=== PATIENT | female | born 1955 | race Hispanic/Latino ===

== ENCOUNTER 2018-01-08 18:06 | Inpatient (IN) | payer MEDICAID ==
[2018-01-08] MEDS ORDERED: Sodium Chloride 0.9% 1,000 ML IV STA (18:19)
[2018-01-08] MEDS ORDERED: Albuterol-Ipratrop 3 mg / 0.5 (3 ml) UD INH STA (18:20)
--- NOTE | 2018-01-08 18:30 | ED PDOC ---
HPI: SOB/CHF/COPD Time Seen by Provider: 01/08/18 18:15 Chief Complaint (Nursing): Shortness Of Breath Chief Complaint (Provider): Shortness Of Breath History Per: Patient History/Exam Limitations: no limitations Onset/Duration Of Symptoms: Days (x2 weeks) Additional Complaint(s): 62 y/o female with history of diabetes presents to the ED via EMS complaining of cough, shortness of breath, fever, and body aches ongoing intermittent episodes for the past x2 weeks. Patient denies any vomiting or diarrhea. Patient has a history of diabetes but admits to not taking any medications and does not check her sugar. She denies having any sick contact and reports that her family called 911 when they saw her for the Holidays and were concerned about her overall health. Past Medical History Reviewed: Historical Data, Nursing Documentation, Vital Signs Vital Signs: Last Vital Signs Temp 102.7 F H 01/08/18 18:13 Pulse 100 H 01/08/18 18:13 Resp 22 01/08/18 18:13 BP 142/98 H 01/08/18 18:13 Pulse Ox 93 L 01/08/18 18:19 - Medical History PMH: Diabetes - Surgical History Surgical History: - Family History Family History: States: Unknown Family Hx - Social History Current smoker - smoking cessation education provided: No Alcohol: None - Immunization History Hx Tetanus Toxoid Vaccination: No Hx Influenza Vaccination: No Hx Pneumococcal Vaccination: No - Home Medications Home Medications: Ambulatory Orders Medication Instructions Recorded GlipiZIDE [Glucotrol] 5 mg PO BID #60 tab 07/24/15 Sulfamethoxazole/Trimethoprim 1 tab PO BID #12 tab 07/24/15 [Bactrim DS 800 mg-160 mg] metFORMIN [glucOPHAGE] 500 mg PO BID #60 tab 07/24/15 - Allergies Allergies/Adverse Reactions: Allergies Allergy/AdvReac Type Severity Reaction Status Date / Time No Known Allergies Allergy Unverified 01/08/18 18:13 Review of Systems ROS Statement: Except As Marked, All Systems Reviewed And Found Negative Constitutional: Positive for: Fever, Weakness, Malaise, Other (body aches) Respiratory: Positive for: Cough, Shortness of Breath Gastrointestinal: Negative for: Vomiting, Abdominal Pain, Diarrhea Genitourinary Female: Negative for: Dysuria, Frequency, Incontinence Musculoskeletal: Negative for: Neck Pain Neurological: Negative for: Headache Physical Exam - Reviewed Nursing Documentation Reviewed: Yes Vital Signs Reviewed: Yes - Physical Exam Appears: Positive for: Non-toxic Head Exam: Positive for: ATRAUMATIC, NORMOCEPHALIC Skin: Positive for: Normal Color, Warm, Dry Eye Exam: Positive for: EOMI, Normal appearance, PERRL Neck: Positive for: Normal, Painless ROM Respiratory: Positive for: Rhonchi (at right base of lungs), Wheezing (trace wheezing bilaterally) Gastrointestinal/Abdominal: Positive for: Normal Exam, Soft. Negative for: Tenderness Extremity: Positive for: Other (distal pulses intact). Negative for: Pedal Edema, Deformity Neurologic/Psych: Positive for: Alert, Oriented. Negative for: Motor/Sensory Deficits - ECG O2 Sat by Pulse Oximetry: 93 (RA) Pulse Ox Interpretation: Abnormal Medical Decision Making Medical Decision Making: Time: 18:19 Impression: patient was found to be febrile. Will workup for sepsis r/o pneumonia vs. Flu vs. other Initial Plan: * VBG * EKG * CMP * Magnesium * Phosphorous * CBC w/ diff * PTT * Prothrombin time * CXR * Duoneb * IV fluids * Tylenol * Blood culture * Urine culture * O2 via nasal cannula * Peak flow * Influenza A B * UA ----- Scribe Attestation: Documented by Orlando He, acting as a scribe for Nirav Torres MD. Provider Scribe Attestation: All medical record entries made by the Scribe were at my direction and personally dictated by me. I have reviewed the chart and agree that the record accurately reflects my personal performance of the history, physical exam, medical decision making, and the department course for this patient. I have also personally directed, reviewed, and agree with the discharge instructions and disposition. Disposition - Disposition
[2018-01-08 18:45] LABS: VENOUS BLOOD GAS BASE EXCESS 2.7 mmol/L (0.0-2.0); VENOUS BLOOD GAS PCO2 36 mmHg (40-60); VENOUS BLOOD GAS PO2 54 mm/Hg (30-55); VENOUS BLOOD PH 7.47 (7.32-7.43)
[2018-01-08] MEDS ORDERED: Albuterol-Ipratrop 3 mg / 0.5 (3 ml) UD ONE (18:45)
[2018-01-08 18:53] LABS: BASO # 0.1 K/uL (0.0-0.2); BASO % 0.6 % (0.0-2.0); EOS % 0.2 % (0.0-4.0); HEMOGLOBIN 13.7 g/dL (12.0-16.0); LYMPH # 3.4 K/uL (1.0-4.3); LYMPH % 18.3 % (20.0-40.0); MEAN CELL VOLUME 87.8 fl (81.0-99.0); MEAN CORPUSCULAR HEMOGLOBIN 29.9 pg (27.0-31.0); MEAN PLATELET VOLUME 8.4 fl (7.2-11.7); MONO # 1.2 K/uL (0.0-0.8); MONO % 6.8 % (0.0-10.0); NEUT # 13.7 K/uL (1.8-7.0); NEUT % 74.1 % (50.0-75.0); RBC 4.6 Mil/uL (3.80-5.20); RED CELL DISTRIBUTION WIDTH 12.8 % (11.5-14.5); WHITE BLOOD COUNT 18.4 K/uL (4.8-10.8)
[2018-01-08 18:57] LABS: URINE BILIRUBIN NEGATIVE (NEGATIVE); URINE BLOOD MODERATE (NEGATIVE); URINE CLARITY TURBID (Clear); URINE COLOR AMBER (YELLOW); URINE GLUCOSE (UA) >=500 mg/dL (Normal); URINE LEUKOCYTE ESTERASE LARGE Leu/uL (Negative); URINE PROTEIN 100 mg/dL (NEGATIVE)
[2018-01-08 19:24] LABS: INR 1.1; PROTHROMBIN TIME 12.7 Seconds (9.8-13.1)
[2018-01-08] MEDS ORDERED: Azithromycin 500 MG in Sodium Chloride 0.9% 250 ML IVPB STA (19:26)
[2018-01-08 19:27] LABS: PARTIAL THROMBOPLASTIN TIME 30.1 Seconds (25.6-37.1)
[2018-01-08 19:30] LABS: ALBUMIN 3.8 g/dL (3.5-5.0); ALT/SGPT 38 U/L (9-52); AST/SGOT 23 U/L (14-36); BLOOD UREA NITROGEN 10 mg/dl (7-17); CALCIUM 8.8 mg/dL (8.4-10.2); GFR NON-AFRICAN AMERICAN > 60
[2018-01-08] MEDS ORDERED: cefTRIAXone (Rocephin) 1 gm Inj ONE (20:29)
[2018-01-08] MEDS ORDERED: Azithromycin 500 MG IV IVPB ONE (21:09)
[2018-01-08] MEDS: Insulin Lispro (humaLOG) 100 Units/ml Inj SC SCH (23:06)
[2018-01-08] MEDS: Sodium Chloride 0.9% 1,000 ML IV SCH (23:41)
[2018-01-09 06:39] LABS: HEMOGLOBIN 12.3 g/dL (12.0-16.0); MEAN CELL VOLUME 90.5 fl (81.0-99.0); MEAN CORPUSCULAR HEMOGLOBIN 29.4 pg (27.0-31.0); MEAN CORPUSCULAR HGB CONC 32.4 g/dL (33.0-37.0); RBC 4.18 Mil/uL (3.80-5.20); RED CELL DISTRIBUTION WIDTH 12.9 % (11.5-14.5); WHITE BLOOD COUNT 15.5 K/uL (4.8-10.8)
[2018-01-09 06:45] LABS: ALB/GLOB RATIO 0.9 (1.0-2.1); ALBUMIN 3.3 g/dL (3.5-5.0); ALT/SGPT 36 U/L (9-52); AST/SGOT 28 U/L (14-36); BLOOD UREA NITROGEN 8 mg/dl (7-17); CALCIUM 8.3 mg/dL (8.4-10.2); GFR NON-AFRICAN AMERICAN > 60
[2018-01-09] MEDS: Insulin Lispro (humaLOG) 100 Units/ml Inj SC SCH ×4 (08:34→23:00)
[2018-01-09] MEDS: Enoxaparin 40 mg Syringe SC SCH (08:38)
[2018-01-09] MEDS: Azithromycin 500 MG in Sodium Chloride 0.9% 250 ML IVPB SCH (08:41)
[2018-01-09] MEDS: Sodium Chloride 0.9% 1,000 ML IV SCH ×2 (08:43→17:25)
--- NOTE | 2018-01-09 09:42 | CARD ---
APPROVED REPORT Date of service: 01/08/2018 EKG Measurement Heart [id number] <Conclusion> Sinus tachycardia Left axis deviation Minimal voltage criteria for LVH, may be normal variant Cannot rule out small or absent R waves V1-V3, may be due to lead placement or possible septal infarct age undetermined. Abnormal ECG
--- NOTE | 2018-01-09 11:44 | RAD ---
Date of service: 01/08/2018 HISTORY: cough fever COMPARISON: No prior. TECHNIQUE: Chest PA and lateral FINDINGS: LUNGS: No active pulmonary disease. PLEURA: No significant pleural effusion identified. No pneumothorax apparent. CARDIOVASCULAR: No aortic atherosclerotic calcification present. Normal cardiac size. Prominent lateral convexity is appreciated at the right perihilar region potentially reflecting lymphadenopathy or possible hilar lesion. No pulmonary vascular congestion. OSSEOUS STRUCTURES: No significant abnormalities. VISUALIZED UPPER ABDOMEN: Normal. OTHER FINDINGS: None. IMPRESSION: Prominent right perihilar changes may reflect lymphadenopathy or mass. Follow-up chest CT with contrast is recommended for detailed evaluation of this region. PA review assigned.
--- NOTE | 2018-01-09 11:50 | CP.PCM.HP ---
History of Present Illness - History of Present Illness History of Present Illness: CC: Cough History of Present Illness: A 62 y/o female with history of Diabetes M, and does not take her medication presents to the ED via EMS complaining of cough productive of Yellowish sputum associated with shortness of breath, fever, and body aches ongoing intermittent episodes for the past x2 weeks. Patient denies any vomiting or diarrhea. . She denies having any sick contact and reports that her family called 911 when they saw her for the Holidays and were concerned about her overall health. Present on Admission - Present on Admission Any Indicators Present on Admission: No Review of Systems - Review of Systems All systems: reviewed and no additional remarkable complaints except Review of Systems: as per HPI Past Patient History - Past Medical History & Family History Past Medical History?: Yes Past Family History: Reviewed and not pertinent - Past Social History Smoking Status: Never Smoked Alcohol: None Drugs: Denies - CARDIAC Hx Cardiac Disorders: No - PULMONARY Hx Respiratory Disorders: No - NEUROLOGICAL Hx Neurological Disorder: No - HEENT Hx HEENT Problems: No - RENAL Hx Chronic Kidney Disease: No - ENDOCRINE/METABOLIC Hx Endocrine Disorders: Yes Hx Diabetes Mellitus Type 2: Yes - HEMATOLOGICAL/ONCOLOGICAL Hx Blood Disorders: No - INTEGUMENTARY Hx Dermatological Problems: No - MUSCULOSKELETAL/RHEUMATOLOGICAL Hx Musculoskeletal Disorders: No Hx Falls: No - GASTROINTESTINAL Hx Gastrointestinal Disorders: No - GENITOURINARY/GYNECOLOGICAL Hx Genitourinary Disorders: No - PSYCHIATRIC Hx Psychophysiologic Disorder: No Hx Substance Use: No - SURGICAL HISTORY Hx Surgeries: Yes Hx Section: Yes - ANESTHESIA Hx Anesthesia: Yes Hx Anesthesia Reactions: No Hx Malignant Hyperthermia: No Meds Allergies/Adverse Reactions: Allergies Allergy/AdvReac Type Severity Reaction Status Date / Time No Known Allergies Allergy Unverified 01/08/18 18:13 Physical Exam - Constitutional Appears: In Acute Distress - Head Exam Head Exam: ATRAUMATIC, NORMAL INSPECTION, NORMOCEPHALIC - Eye Exam Eye Exam: EOMI, Normal appearance, PERRL Pupil Exam: NORMAL ACCOMODATION, PERRL - ENT Exam ENT Exam: Mucous Membranes Moist, Normal Exam - Neck Exam Neck exam: Positive for: Normal Inspection - Respiratory Exam Respiratory Exam: Accessory Muscle Use, Decreased Breath Sounds, Rales - Cardiovascular Exam Cardiovascular Exam: REGULAR RHYTHM, +S1, +S2 - GI/Abdominal Exam GI & Abdominal Exam: Normal Bowel Sounds, Soft. absent: Tenderness - Extremities Exam Extremities exam: Positive for: full ROM, normal inspection - Back Exam Back exam: NORMAL INSPECTION - Neurological Exam Neurological exam: Alert, CN II-XII Intact, Normal Gait, Oriented x3, Reflexes Normal - Psychiatric Exam Psychiatric exam: Normal Affect, Normal Mood - Skin Skin Exam: Dry, Intact, Normal Color, Warm Results - Vital Signs Recent Vital Signs: Last Vital Signs Temp 99.0 F 01/09/18 09:31 Pulse 91 H 01/09/18 07:49 Resp 18 01/09/18 07:49 BP 113/71 01/09/18 07:49 Pulse Ox 95 01/09/18 07:49 - Labs Result Diagrams: 01/10/18 08:25 01/11/18 05:42 Labs: Laboratory Results - last 24 hr 01/08/18 01/08/18 01/08/18 17:40 18:18 18:30 WBC 18.4 H RBC 4.60 Hgb 13.7 Hct 40.4 MCV 87.8 MCH 29.9 MCHC 34.0 RDW 12.8 Plt Count 331 MPV 8.4 Neut % (Auto) 74.1 Lymph % (Auto) 18.3 L [place] % (Auto) 6.8 Eos % (Auto) 0.2 Baso % (Auto) 0.6 Neut # (Auto) 13.7 H Lymph # (Auto) 3.4 Cuming # (Auto) 1.2 H Eos # (Auto) 0.0 Baso # (Auto) 0.1 PT INR APTT pO2 VBG pH VBG pCO2 VBG HCO3 VBG Total CO2 VBG O2 Sat (Calc) VBG Base Excess VBG Potassium Glucose Lactate FiO2 Sodium Potassium Chloride Carbon Dioxide Anion Gap BUN Creatinine Est GFR ( Amer) Est GFR (Non-Af Amer) POC Glucose (mg/dL) 232 H Random Glucose Calcium Phosphorus Magnesium Total Bilirubin AST ALT Alkaline Phosphatase Total Protein Albumin Globulin Albumin/Globulin Ratio Venous Blood Potassium Urine Color Re Urine Clarity Turbid Urine pH 5.0 Ur Specific [place] 1.029 Urine Protein 100 Urine Glucose (UA) >=500 Urine Ketones 20 Urine Blood Moderate Urine Nitrate Negative Urine Bilirubin Negative Urine Urobilinogen 2.0 H Ur Leukocyte Esterase Large Urine Microscopic WBC < 1 Influenza Typ A,B (EIA) 01/08/18 01/08/18 01/08/18 18:30 18:30 18:30 WBC RBC Hgb Hct MCV MCH MCHC RDW Plt Count MPV Neut % (Auto) Lymph % (Auto) [place] % (Auto) Eos % (Auto) Baso % (Auto) Neut # (Auto) Lymph # (Auto) [place] # (Auto) Eos # (Auto) Baso # (Auto) PT 12.7 INR 1.1 APTT 30.1 pO2 VBG pH VBG pCO2 VBG HCO3 VBG Total CO2 VBG O2 Sat (Calc) VBG Base Excess VBG Potassium Glucose Lactate FiO2 Sodium 136 Potassium 4.4 Chloride 99 Carbon Dioxide 25 Anion Gap 16 BUN 10 Creatinine 0.5 L Est GFR ( Amer) > 60 Est GFR (Non-Af Amer) > 60 POC Glucose (mg/dL) Random Glucose 286 H Calcium 8.8 Phosphorus 2.8 Magnesium 1.7 Total Bilirubin 0.4 AST 23 ALT 38 Alkaline Phosphatase 150 H Total Protein 7.7 Albumin 3.8 Globulin 3.9 Albumin/Globulin Ratio 1.0 Venous Blood Potassium Urine Color Urine Clarity Urine pH Ur Specific [place] Urine Protein Urine Glucose (UA) Urine Ketones Urine Blood Urine Nitrate Urine Bilirubin Urine Urobilinogen Ur Leukocyte Esterase Urine Microscopic WBC Influenza Typ A,B (EIA) Negative for flu a/b 01/08/18 01/08/18 01/09/18 18:40 21:41 04:20 WBC 15.5 H RBC 4.18 Hgb 12.3 Hct 37.8 MCV 90.5 D MCH 29.4 MCHC 32.4 L RDW 12.9 Plt Count 283 MPV Neut % (Auto) Lymph % (Auto) [place] % (Auto) Eos % (Auto) Baso % (Auto) Neut # (Auto) Lymph # (Auto) [place] # (Auto) Eos # (Auto) Baso # (Auto) PT INR APTT pO2 54 VBG pH 7.47 H VBG pCO2 36 L VBG HCO3 26.8 VBG Total CO2 27.3 VBG O2 Sat (Calc) 95.0 H VBG Base Excess 2.7 H VBG Potassium 4.2 Glucose 302 H Lactate 1.4 FiO2 21.0 Sodium 132.0 Potassium Chloride 97.0 L Carbon Dioxide Anion Gap BUN Creatinine Est GFR ( Amer) Est GFR (Non-Af Amer) POC Glucose (mg/dL) 255 H Random Glucose Calcium Phosphorus Magnesium Total Bilirubin AST ALT Alkaline Phosphatase Total Protein Albumin Globulin Albumin/Globulin Ratio Venous Blood Potassium 4.2 Urine Color Urine Clarity Urine pH Ur Specific [place] Urine Protein Urine Glucose (UA) Urine Ketones Urine Blood Urine Nitrate Urine Bilirubin Urine Urobilinogen Ur Leukocyte Esterase Urine Microscopic WBC Influenza Typ A,B (EIA) 01/09/18 01/09/18 01/09/18 04:20 05:33 11:34 WBC RBC Hgb Hct MCV MCH MCHC RDW Plt Count MPV Neut % (Auto) Lymph % (Auto) [place] % (Auto) Eos % (Auto) Baso % (Auto) Neut # (Auto) Lymph # (Auto) [place] # (Auto) Eos # (Auto) Baso # (Auto) PT INR APTT pO2 VBG pH VBG pCO2 VBG HCO3 VBG Total CO2 VBG O2 Sat (Calc) VBG Base Excess VBG Potassium Glucose Lactate FiO2 Sodium 134 Potassium 4.0 Chloride 99 Carbon Dioxide 24 Anion Gap 15 BUN 8 Creatinine 0.4 L Est GFR ( Amer) > 60 Est GFR (Non-Af Amer) > 60 POC Glucose (mg/dL) 228 H 266 H Random Glucose 234 H Calcium 8.3 L Phosphorus Magnesium Total Bilirubin 0.4 AST 28 ALT 36 Alkaline Phosphatase 139 H Total Protein 7.1 Albumin 3.3 L Globulin 3.7 Albumin/Globulin Ratio 0.9 L Venous Blood Potassium Urine Color Urine Clarity Urine pH Ur Specific [place] Urine Protein Urine Glucose (UA) Urine Ketones Urine Blood Urine Nitrate Urine Bilirubin Urine Urobilinogen Ur Leukocyte Esterase Urine Microscopic WBC Influenza Typ A,B (EIA) - Imaging and Cardiology Chest x-ray Status: Report reviewed by me Additional comment: Date of service: 01/08/2018 HISTORY: cough fever COMPARISON: No prior. TECHNIQUE: Chest PA and lateral FINDINGS: LUNGS: No active pulmonary disease. PLEURA: No significant pleural effusion identified. No pneumothorax apparent. CARDIOVASCULAR: No aortic atherosclerotic calcification present. Normal cardiac size. Prominent lateral convexity is appreciated at the right perihilar region potentially reflecting lymphadenopathy or possible hilar lesion. No pulmonary vascular congestion. OSSEOUS STRUCTURES: No significant abnormalities. VISUALIZED UPPER ABDOMEN: Normal. OTHER FINDINGS: None. IMPRESSION: Prominent right perihilar changes may reflect lymphadenopathy or mass. Follow- up chest CT with contrast is recommended for detailed evaluation of this region. PA review assigned. CT scan - chest Status: Report reviewed by me Additional comment: with Contrast: IMPRESSION: Multifocal pulmonary infiltrates with somewhat rounded dense consolidation in the posterior right lower lobe. Likely infectious etiology. Follow-up to clearing is advised to exclude underlying neoplasm. No additional abnormality. Assessment & Plan (1) Sepsis Status: Acute Priority: High (2) CAP (community acquired pneumonia) Status: Acute Priority: High (3) Acute UTI (urinary tract infection) Status: Acute Priority: Medium (4) Diabetes mellitus with hyperglycemia Status: Acute Priority: Medium - Assessment and Plan (Free Text) Plan: Admit to Telemetry IVF IV Azithromycin and Rocephin Duoneb Q4hrs RTC Acccucheck with SS Tylenol PRN O2 Via NC ID Consult Urine, Blood and Sputum Cultures HgA1C
[2018-01-09] MEDS ORDERED: Sodium Chloride 3% for Inhalation 4 ML VIAL.NEB IH PRN (13:04)
[2018-01-09] MEDS ORDERED: Sodium Chloride 0.9% 50 ML IV ONE (13:58)
[2018-01-09] MEDS ORDERED: Iohexol 300 100 ML IJ ONE (13:58)
[2018-01-09] MEDS: Albuterol-Ipratrop 3 mg / 0.5 (3 ml) UD INH SCH ×3 (15:44→23:40)
--- NOTE | 2018-01-09 16:02 | CT ---
Date of service: 01/09/2018 PROCEDURE: CT Chest with contrast HISTORY: ?mass COMPARISON: None available. TECHNIQUE: Contiguous axial images were obtained through the chest with intravenous contrast enhancement. Sagittal and coronal reconstructions were performed. IV contrast: 95 mL Omnipaque 300 Radiation dose: Total exam DLP = 461.36 mGy-cm. This CT exam was performed using one or more of the following dose reduction techniques: Automated exposure control, adjustment of the mA and/or kV according to patient size, and/or use of iterative reconstruction technique. FINDINGS: LUNGS: There is pulmonary infiltrate in the lateral segment of the right middle lobe. There infiltrate in the superior segment of the left lower lobe. There is dense somewhat rounded consolidation in the posterior right lower lobe abutting the pleural surface. There are air bronchograms seen within this consolidation. Follow-up to clearing is advised to exclude underlying neoplasm. There is a 3 mm subpleural nodule in the apical segment of the right upper lobe. This is seen on series 3, image 15. No follow-up is required as per Fleischner society criteria. MEDIASTINUM: Unremarkable thoracic aorta. No aneurysm or dissection. Normal sized heart. Main pulmonary artery unremarkable. No vascular congestion. No lymphadenopathy. No aortic atherosclerotic calcification or mural plaque present. PLEURA: No pleural fluid. No pneumothorax. BONES: No fracture. No destructive lesion. UPPER ABDOMEN: Grossly unremarkable. OTHER FINDINGS: None. IMPRESSION: Multifocal pulmonary infiltrates with somewhat rounded dense consolidation in the posterior right lower lobe. Likely infectious etiology. Follow-up to clearing is advised to exclude underlying neoplasm. No additional abnormality.
[2018-01-10] MEDS: Albuterol-Ipratrop 3 mg / 0.5 (3 ml) UD INH SCH ×6 (03:58→23:39)
[2018-01-10] MEDS: Insulin Lispro (humaLOG) 100 Units/ml Inj SC SCH ×4 (07:01→22:08)
[2018-01-10 10:05] LABS: ALB/GLOB RATIO 0.8 (1.0-2.1); ALBUMIN 3.2 g/dL (3.5-5.0); ALT/SGPT 52 U/L (9-52); AST/SGOT 48 U/L (14-36); BLOOD UREA NITROGEN 7 mg/dl (7-17); CALCIUM 8.2 mg/dL (8.4-10.2); GFR NON-AFRICAN AMERICAN > 60
[2018-01-10 10:11] LABS: BASO # 0.1 K/uL (0.0-0.2); BASO % 0.4 % (0.0-2.0); EOS # 0.1 K/uL (0.0-0.7); EOS % 0.7 % (0.0-4.0); HEMOGLOBIN 11.4 g/dL (12.0-16.0); LYMPH # 2.7 K/uL (1.0-4.3); LYMPH % 20.6 % (20.0-40.0); MEAN CELL VOLUME 89.7 fl (81.0-99.0); MEAN CORPUSCULAR HEMOGLOBIN 29.3 pg (27.0-31.0); MEAN CORPUSCULAR HGB CONC 32.7 g/dL (33.0-37.0); MEAN PLATELET VOLUME 8.1 fl (7.2-11.7); MONO # 1.2 K/uL (0.0-0.8); MONO % 8.8 % (0.0-10.0); NEUT # 9.2 K/uL (1.8-7.0); NEUT % 69.5 % (50.0-75.0); NRBC % 0.1 % (0.0-0.0); RBC 3.9 Mil/uL (3.80-5.20); RED CELL DISTRIBUTION WIDTH 12.9 % (11.5-14.5); WHITE BLOOD COUNT 13.2 K/uL (4.8-10.8)
[2018-01-10] MEDS: Enoxaparin 40 mg Syringe SC SCH (10:33)
[2018-01-10] MEDS: Azithromycin 500 MG in Sodium Chloride 0.9% 250 ML IVPB SCH (10:34)
[2018-01-10] MEDS ORDERED: Potassium Chloride 20 mEq ER Tab PO ONE (17:43)
[2018-01-11] MEDS: Albuterol-Ipratrop 3 mg / 0.5 (3 ml) UD INH SCH ×6 (03:54→23:00)
[2018-01-11 06:42] LABS: BLOOD UREA NITROGEN 6 mg/dl (7-17); CALCIUM 8.5 mg/dL (8.4-10.2); GFR NON-AFRICAN AMERICAN > 60
[2018-01-11] MEDS: Insulin Lispro (humaLOG) 100 Units/ml Inj SC SCH ×4 (06:54→23:28)
[2018-01-11] MEDS: Enoxaparin 40 mg Syringe SC SCH (09:07)
[2018-01-11] MEDS: Azithromycin 500 MG in Sodium Chloride 0.9% 250 ML IVPB SCH (10:43)
[2018-01-12] MEDS: Albuterol-Ipratrop 3 mg / 0.5 (3 ml) UD INH SCH ×6 (04:42→23:38)
[2018-01-12] MEDS: Insulin Lispro (humaLOG) 100 Units/ml Inj SC SCH ×4 (06:52→22:06)
--- NOTE | 2018-01-12 08:52 | CP.PCM.PN ---
Subjective - Date & Time of Evaluation Date of Evaluation: 01/10/18 Time of Evaluation: 07:20 Objective - Vital Signs/Intake and Output Vital Signs (last 24 hours): Temp Pulse Resp BP Pulse Ox 98.4 F 80 18 90/59 L 96 01/12/18 08:51 01/12/18 08:51 01/12/18 08:51 01/12/18 08:51 01/12/18 08:51 - Medications Medications: Current Medications Acetaminophen (Tylenol 325mg Tab) 650 mg PO Q4 PRN PRN Reason: Fever >100.4 F Last Admin: 01/12/18 01:10 Dose: 650 mg Albuterol/Ipratropium (Duoneb 3 Mg/0.5 Mg (3 Ml) Ud) 3 ml INH RQ4 KEN Last Admin: 01/12/18 07:27 Dose: 3 ml Benzonatate (Tessalon Perles) 100 mg PO Q8 PRN PRN Reason: Cough Last Admin: 01/09/18 11:57 Dose: 100 mg Enoxaparin Sodium (Lovenox) 40 mg SC DAILY KEN; Protocol Last Admin: 01/11/18 09:07 Dose: 40 mg Ceftriaxone Sodium 1 gm/ (Sodium Chloride) 100 mls @ 100 mls/hr IVPB DAILY KEN; Protocol Last Admin: 01/11/18 09:07 Dose: 100 mls/hr Azithromycin 500 mg/ Sodium (Chloride) 250 mls @ 250 mls/hr IVPB DAILY KEN; Protocol Last Admin: 01/11/18 10:43 Dose: 250 mls/hr Insulin Human Lispro (Humalog) 0 units SC ACCU-CHECK KEN; Protocol Last Admin: 01/12/18 06:52 Dose: 3 units - Labs Labs: 01/10/18 08:25 01/11/18 05:42 PT 12.7 Seconds (9.8-13.1) 01/08/18 18:30 INR 1.1 01/08/18 18:30 APTT 30.1 Seconds (25.6-37.1) 01/08/18 18:30 Assessment and Plan (1) Sepsis Status: Acute (2) CAP (community acquired pneumonia) Status: Acute (3) Acute UTI (urinary tract infection) Status: Acute (4) Diabetes mellitus Status: Acute
--- NOTE | 2018-01-12 08:53 | CP.PCM.PN ---
Subjective - Date & Time of Evaluation Date of Evaluation: 01/11/18 Time of Evaluation: 09:30 Objective - Vital Signs/Intake and Output Vital Signs (last 24 hours): Temp Pulse Resp BP Pulse Ox 98.4 F 80 18 90/59 L 96 01/12/18 08:51 01/12/18 08:51 01/12/18 08:51 01/12/18 08:51 01/12/18 08:51 - Medications Medications: Current Medications Acetaminophen (Tylenol 325mg Tab) 650 mg PO Q4 PRN PRN Reason: Fever >100.4 F Last Admin: 01/12/18 01:10 Dose: 650 mg Albuterol/Ipratropium (Duoneb 3 Mg/0.5 Mg (3 Ml) Ud) 3 ml INH RQ4 KEN Last Admin: 01/12/18 07:27 Dose: 3 ml Benzonatate (Tessalon Perles) 100 mg PO Q8 PRN PRN Reason: Cough Last Admin: 01/09/18 11:57 Dose: 100 mg Enoxaparin Sodium (Lovenox) 40 mg SC DAILY KEN; Protocol Last Admin: 01/11/18 09:07 Dose: 40 mg Ceftriaxone Sodium 1 gm/ (Sodium Chloride) 100 mls @ 100 mls/hr IVPB DAILY KEN; Protocol Last Admin: 01/11/18 09:07 Dose: 100 mls/hr Azithromycin 500 mg/ Sodium (Chloride) 250 mls @ 250 mls/hr IVPB DAILY KEN; Protocol Last Admin: 01/11/18 10:43 Dose: 250 mls/hr Insulin Human Lispro (Humalog) 0 units SC ACCU-CHECK KEN; Protocol Last Admin: 01/12/18 06:52 Dose: 3 units - Labs Labs: 01/10/18 08:25 01/11/18 05:42 PT 12.7 Seconds (9.8-13.1) 01/08/18 18:30 INR 1.1 01/08/18 18:30 APTT 30.1 Seconds (25.6-37.1) 01/08/18 18:30 Assessment and Plan (1) Sepsis Status: Acute (2) CAP (community acquired pneumonia) Status: Acute (3) Acute UTI (urinary tract infection) Status: Acute (4) Diabetes mellitus Status: Acute
[2018-01-12] MEDS ORDERED: Azithromycin 500 MG in Sodium Chloride 0.9% 250 ML IVPB STA (09:08)
[2018-01-12] MEDS: Azithromycin 500 MG in Sodium Chloride 0.9% 250 ML IVPB SCH (09:31)
[2018-01-12] MEDS: Enoxaparin 40 mg Syringe SC SCH (09:32)
--- NOTE | 2018-01-12 14:51 | RAD ---
Date of service: 01/12/2018 HISTORY: Pneumonia. COMPARISON: 01/08/2018 single-view chest. 01/09/2018 CT thorax TECHNIQUE: Chest PA and lateral FINDINGS: LUNGS: Persistent albeit improving right middle and lower lobe infiltrates. Radiographic clearing, resolution of left lower lobe infiltrate. PLEURA: No significant pleural effusion identified. No pneumothorax apparent. CARDIOVASCULAR: No aortic atherosclerotic calcification present. Normal cardiac size. No pulmonary vascular congestion. OSSEOUS STRUCTURES: No significant abnormalities. VISUALIZED UPPER ABDOMEN: Normal. OTHER FINDINGS: None. IMPRESSION: Interval improvement in right lung infiltrates without complete resolution.
[2018-01-12 20:02] VITALS: RESP 18
[2018-01-13] MEDS: Albuterol-Ipratrop 3 mg / 0.5 (3 ml) UD INH SCH ×3 (04:17→11:04)
[2018-01-13 05:36] LABS: HEMOGLOBIN 11.5 g/dL (12.0-16.0); MEAN CELL VOLUME 88.6 fl (81.0-99.0); MEAN CORPUSCULAR HEMOGLOBIN 29.2 pg (27.0-31.0); MEAN CORPUSCULAR HGB CONC 32.9 g/dL (33.0-37.0); RBC 3.93 Mil/uL (3.80-5.20); RED CELL DISTRIBUTION WIDTH 12.9 % (11.5-14.5); WHITE BLOOD COUNT 12.5 K/uL (4.8-10.8)
[2018-01-13 06:04] LABS: BLOOD UREA NITROGEN 14 mg/dl (7-17); CALCIUM 8.9 mg/dL (8.4-10.2); GFR NON-AFRICAN AMERICAN > 60
[2018-01-13 07:57] VITALS: O2SAT 93
[2018-01-13] MEDS: Insulin Lispro (humaLOG) 100 Units/ml Inj SC SCH ×2 (08:04→12:26)
[2018-01-13] MEDS ORDERED: cefTRIAXone (Rocephin) 2 gm Inj IVPB SCH (09:00)
[2018-01-13 09:32] VITALS: PULSE 91
[2018-01-13 12:49] VITALS: BP 136/82; TEMP 98
[2018-01-13] MEDS ORDERED: Pneumococcal 23-Valent Vaccine IM ONE (15:00)
[2018-01-13] MEDS ORDERED: Influenza Vaccine 60 mcg/0.5 mL SYR (4YR UP) IM ONE (15:00)
--- NOTE | 2018-01-13 23:29 | CP.PCM.DIS ---
Provider - Provider Date of Admission: 01/08/18 20:08 Attending physician: Lisa Araujo MD Time Spent in preparation of Discharge (in minutes): 25 Diagnosis - Discharge Diagnosis (1) Sepsis Status: Acute Priority: High (2) CAP (community acquired pneumonia) Status: Acute Priority: High (3) Acute UTI (urinary tract infection) Status: Acute Priority: Medium (4) Diabetes mellitus with hyperglycemia Status: Acute Priority: Medium Hospital Course - Lab Results Lab Results: Micro Results 01/08/18 19:00 Blood Blood Culture - Final NO GROWTH AFTER 5 DAYS 01/08/18 19:00 Blood Gram Stain - Final TEST NOT PERFORMED 01/08/18 18:30 Blood Blood Culture - Final NO GROWTH AFTER 5 DAYS 01/08/18 18:30 Blood Gram Stain - Final TEST NOT PERFORMED 01/08/18 17:40 Urine,Clean Catch Urine Culture - Final Escherichia Coli Most Recent Lab Values WBC 12.5 K/uL (4.8-10.8) H 01/13/18 04:25 RBC 3.93 Mil/uL (3.80-5.20) 01/13/18 04:25 Hgb 11.5 g/dL (12.0-16.0) L 01/13/18 04:25 Hct 34.9 % (34.0-47.0) 01/13/18 04:25 MCV 88.6 fl (81.0-99.0) 01/13/18 04:25 MCH 29.2 pg (27.0-31.0) 01/13/18 04:25 MCHC 32.9 g/dL (33.0-37.0) L 01/13/18 04:25 RDW 12.9 % (11.5-14.5) 01/13/18 04:25 Plt Count 425 K/uL (130-400) H D 01/13/18 04:25 MPV 8.1 fl (7.2-11.7) 01/10/18 08:25 Neut % (Auto) 69.5 % (50.0-75.0) 01/10/18 08:25 Lymph % (Auto) 20.6 % (20.0-40.0) 01/10/18 08:25 [place] % (Auto) 8.8 % (0.0-10.0) 01/10/18 08:25 Eos % (Auto) 0.7 % (0.0-4.0) 01/10/18 08:25 Baso % (Auto) 0.4 % (0.0-2.0) 01/10/18 08:25 Neut # (Auto) 9.2 K/uL (1.8-7.0) H 01/10/18 08:25 Lymph # (Auto) 2.7 K/uL (1.0-4.3) 01/10/18 08:25 [place] # (Auto) 1.2 K/uL (0.0-0.8) H 01/10/18 08:25 Eos # (Auto) 0.1 K/uL (0.0-0.7) 01/10/18 08:25 Baso # (Auto) 0.1 K/uL (0.0-0.2) 01/10/18 08:25 PT 12.7 Seconds (9.8-13.1) 01/08/18 18:30 INR 1.1 01/08/18 18:30 APTT 30.1 Seconds (25.6-37.1) 01/08/18 18:30 pO2 54 mm/Hg (30-55) 01/08/18 18:40 VBG pH 7.47 (7.32-7.43) H 01/08/18 18:40 VBG pCO2 36 mmHg (40-60) L 01/08/18 18:40 VBG HCO3 26.8 mmol/L 01/08/18 18:40 VBG Total CO2 27.3 mmol/L (22-28) 01/08/18 18:40 VBG O2 Sat (Calc) 95.0 % (40-65) H 01/08/18 18:40 VBG Base Excess 2.7 mmol/L (0.0-2.0) H 01/08/18 18:40 VBG Potassium 4.2 mmol/L (3.6-5.2) 01/08/18 18:40 Sodium 132.0 mmol/L (132-148) 01/08/18 18:40 Chloride 97.0 mmol/L (98-107) L 01/08/18 18:40 Glucose 302 mg/dL (65-105) H 01/08/18 18:40 Lactate 1.4 mmol/L (0.7-2.1) 01/08/18 18:40 FiO2 21.0 % 01/08/18 18:40 Sodium 136 mmol/l (132-148) 01/13/18 04:25 Potassium 4.2 MMOL/L (3.6-5.0) 01/13/18 04:25 Chloride 99 mmol/L (98-107) 01/13/18 04:25 Carbon Dioxide 28 mmol/L (22-30) 01/13/18 04:25 Anion Gap 13 (10-20) 01/13/18 04:25 BUN 14 mg/dl (7-17) 01/13/18 04:25 Creatinine 0.5 mg/dl (0.7-1.2) L 01/13/18 04:25 Est GFR ( Amer) > 60 01/13/18 04:25 Est GFR (Non-Af Amer) > 60 01/13/18 04:25 POC Glucose (mg/dL) 345 mg/dL (65-110) H 01/13/18 12:08 Random Glucose 300 mg/dL (65-105) H 01/13/18 04:25 Hemoglobin A1c 12.6 % (4.2-6.5) H 01/09/18 13:12 Calcium 8.9 mg/dL (8.4-10.2) 01/13/18 04:25 Phosphorus 2.6 mg/dl (2.5-4.5) 01/10/18 08:25 Magnesium 1.7 MG/DL (1.6-2.3) 01/10/18 08:25 Total Bilirubin 0.3 mg/dl (0.2-1.3) 01/10/18 08:25 AST 48 U/L (14-36) H D 01/10/18 08:25 ALT 52 U/L (9-52) D 01/10/18 08:25 Alkaline Phosphatase 169 U/L (38-126) H D 01/10/18 08:25 Total Protein 7.1 G/DL (6.3-8.2) 01/10/18 08:25 Albumin 3.2 g/dL (3.5-5.0) L 01/10/18 08:25 Globulin 3.8 gm/dL (2.2-3.9) 01/10/18 08:25 Albumin/Globulin Ratio 0.8 (1.0-2.1) L 01/10/18 08:25 Venous Blood Potassium 4.2 mmol/L (3.6-5.2) 01/08/18 18:40 Urine Color Re (YELLOW) 01/08/18 17:40 Urine Clarity Turbid (Clear) 01/08/18 17:40 Urine pH 5.0 (5.0-8.0) 01/08/18 17:40 Ur Specific [place] 1.029 (1.003-1.030) 01/08/18 17:40 Urine Protein 100 mg/dL (NEGATIVE) 01/08/18 17:40 Urine Glucose (UA) >=500 mg/dL (Normal) 01/08/18 17:40 Urine Ketones 20 mg/dL (NEGATIVE) 01/08/18 17:40 Urine Blood Moderate (NEGATIVE) 01/08/18 17:40 Urine Nitrate Negative (NEGATIVE) 01/08/18 17:40 Urine Bilirubin Negative (NEGATIVE) 01/08/18 17:40 Urine Urobilinogen 2.0 mg/dL (0.2-1.0) H 01/08/18 17:40 Ur Leukocyte Esterase Large Abhi/uL (Negative) 01/08/18 17:40 Urine Microscopic WBC < 1 /hpf (0-5) 01/08/18 17:40 Influenza Typ A,B (EIA) Negative for flu a/b (NEGATIVE) 01/08/18 18:30 Discharge Exam - Head Exam Head Exam: ATRAUMATIC, NORMAL INSPECTION, NORMOCEPHALIC Discharge Plan - Discharge Medications Prescriptions: metFORMIN [glucOPHAGE] 850 mg PO BIDWM #60 tab SITagliptin [Januvia] 100 mg PO DAILY #30 tab Levofloxacin [Levaquin] 500 mg PO DAILY #5 tablet Benzonatate [Tessalon Perles] 100 mg PO Q8 PRN #30 sgl PRN Reason: Cough - Follow Up Plan Condition: GOOD Disposition: HOME/ ROUTINE Instructions: Sepsis, Adult (DC), Community-Acquired Pneumonia, Adult (DC) Additional Instructions: follow up appt with on 01/22/18 at 11:00am Referrals: [facility] [Outside] Lisa Araujo MD [Staff Provider] -
--- NOTE | 2018-01-13 23:29 | CP.PCM.PN ---
Subjective - Date & Time of Evaluation Date of Evaluation: 01/12/18 Time of Evaluation: 07:55 Objective - Vital Signs/Intake and Output Vital Signs (last 24 hours): Temp Pulse Resp BP Pulse Ox 98.0 F 91 H 18 136/82 93 L 01/13/18 12:00 01/13/18 12:00 01/13/18 12:00 01/13/18 12:00 01/13/18 12:00 - Labs Labs: 01/13/18 04:25 01/13/18 04:25 PT 12.7 Seconds (9.8-13.1) 01/08/18 18:30 INR 1.1 01/08/18 18:30 APTT 30.1 Seconds (25.6-37.1) 01/08/18 18:30 Assessment and Plan (1) Sepsis Status: Acute (2) CAP (community acquired pneumonia) Status: Acute (3) Acute UTI (urinary tract infection) Status: Acute (4) Diabetes mellitus with hyperglycemia Status: Acute
--- NOTE | 2018-01-15 22:00 | PQF ---
PROVIDER RESPONSE TEXT: Bacterial Suspected Organism S. Pneumoniae REVIEWER QUERY TEXT: Pneumonia Specificity CAP Pneumonia is documented in the Medical Record. CAP merely represent the method of acquisition an d not the specific type of pneumonia. Please specify the type of pneumonia and the causative organis m (includes probable or suspected) AFTER WORKUP. Such as: Type: -- Aspiration pneumonia (please also specify the aspirate) -- Bacterial (please document suspected or probable organism) -- Bronchopneumonia (please document suspected or probable organism) -- Interstitial pneumonia -- Organizing pneumonia / BOOP -- Tuberculosis, pulmonary -- Viral -- Other, please specify The patient's Clinical Indicators include: Presents to the ED via EMS complaining of cough productive of Yellowish sputum associated with shortn ess of breath, fever, and body aches ongoing intermittent episodes for the past x2 weeks. History of DM and does not take her medication. CT Chest: Multifocal pulmonary infiltrates with somewhat rounded dense consolidation in the posterior right lower lobe. Likely infectious etiology. Sputum CS ordered. Rx: Dual IVAB Query created by: Dawn Mahajan on 01/13/2018 1:45 PM Electronically signed by: Lisa Araujo MD 01/15/2018 9:57 PM
== END 2018-01-13 14:39 | disposition home or self-care (01) | DRG 584 ==
LOC: H.ER 18:06 → H.ERHOLD 20:08 → H.TEL 21:21
PROVIDERS: ADMIT Internal Medicine; ATTEND Internal Medicine
DX: A41.9 Sepsis, unspecified organism (principal); J13 Pneumonia due to Streptococcus pneumoniae; E11.65 Type 2 diabetes mellitus with hyperglycemia; N39.0 Urinary tract infection, site not specified; Z79.84 Long term (current) use of oral hypoglycemic drugs

== ENCOUNTER 2018-01-17 19:49 | Emergency (ER) | payer MEDICAID ==
[2018-01-17 19:56] VITALS: BP 132/64; PULSE 92; RESP 16; TEMP 97.7; O2SAT 96
[2018-01-17] MEDS ORDERED: Oxycodone/Acetaminophen 5/325 mg Tab PO STA (20:51)
[2018-01-17] MEDS ORDERED: Oxycodone/Acetaminophen 5/325 mg Tab ONE (21:12)
[2018-01-18 00:25] LABS: SQUAMOUS EPITHIAL 3 /hpf (0-5); URINE BACTERIA RARE (<OCC); URINE BILIRUBIN NEGATIVE (NEGATIVE); URINE BLOOD NEGATIVE (NEGATIVE); URINE CLARITY CLOUDY (Clear); URINE COLOR YELLOW (YELLOW); URINE GLUCOSE (UA) 50 mg/dL (Normal); URINE LEUKOCYTE ESTERASE NEG Leu/uL (Negative); URINE PROTEIN 30 mg/dL (NEGATIVE); URINE UROBILINOGEN 0.2-1.0 mg/dL (0.2-1.0)
--- NOTE | 2018-01-18 01:24 | ED PDOC ---
HPI: Back Time Seen by Provider: 01/17/18 20:29 Chief Complaint (Nursing): Back Pain Chief Complaint (Provider): Right lower back pain, radiates down the right leg to thigh History Per: Patient History/Exam Limitations: no limitations Onset/Duration Of Symptoms: Days Current Symptoms Are (Timing): Still Present Quality Of Discomfort: Sharp (with movement, dull at rest ) Additional Complaint(s): 62 yo female with HTN, DM, hx pneumonia/sepsis admission and UTI presents for evaluation of right lower back pain which radiates to the right thigh with movement for 2 weeks. Pt states it has been worse the last 3 days. Pt took motrin at 5pm without relief. Pt denies trauma. Pt without numbness/tingling. No bladder or bowel incontinence. Past Medical History Reviewed: Historical Data, Nursing Documentation, Vital Signs Vital Signs: Last Vital Signs Temp 97.7 F 01/17/18 19:55 Pulse 92 H 01/17/18 19:55 Resp 16 01/17/18 19:55 BP 132/64 01/17/18 19:55 Pulse Ox 96 01/17/18 19:55 - Medical History PMH: Diabetes, HTN Denies: Chronic Kidney Disease - Surgical History Surgical History: - Family History Family History: States: Unknown Family Hx - Living Arrangements Living Arrangements: With Family - Social History Current smoker - smoking cessation education provided: No - Immunization History Hx Tetanus Toxoid Vaccination: No Hx Influenza Vaccination: No Hx Pneumococcal Vaccination: No - Home Medications Home Medications: Ambulatory Orders Medication Instructions Recorded Benzonatate [Tessalon Perles] 100 mg PO Q8 PRN #30 sgl 01/13/18 Levofloxacin [Levaquin] 500 mg PO DAILY #5 tablet 01/13/18 SITagliptin [Januvia] 100 mg PO DAILY #30 tab 01/13/18 metFORMIN [glucOPHAGE] 850 mg PO BIDWM #60 tab 01/13/18 Cyclobenzaprine [Cyclobenzaprine 10 mg PO Q8H #20 tab 01/18/18 HCl] Naproxen [Naprosyn] 500 mg PO BID PRN #20 tablet 01/18/18 oxyCODONE/Acetaminophen [Percocet 1 ea PO Q6H PRN #15 tab 01/18/18 5/325 mg Tab] - Allergies Allergies/Adverse Reactions: Allergies Allergy/AdvReac Type Severity Reaction Status Date / Time No Known Allergies Allergy Verified 01/17/18 19:55 Review of Systems ROS Statement: Except As Marked, All Systems Reviewed And Found Negative Constitutional: Negative for: Fever, Chills Cardiovascular: Negative for: Chest Pain, Palpitations Respiratory: Negative for: Cough, Shortness of Breath Gastrointestinal: Negative for: Nausea, Vomiting, Abdominal Pain Musculoskeletal: Positive for: Back Pain Physical Exam - Reviewed Nursing Documentation Reviewed: Yes Vital Signs Reviewed: Yes - Physical Exam Appears: Positive for: Well, Non-toxic, No Acute Distress Head Exam: Positive for: ATRAUMATIC, NORMAL INSPECTION, NORMOCEPHALIC Skin: Positive for: Normal Color, Warm, DRY Eye Exam: Positive for: Normal appearance ENT: Positive for: Normal ENT Inspection Neck: Positive for: Normal, Painless ROM Cardiovascular/Chest: Positive for: Regular Rate, Rhythm Respiratory: Positive for: Normal Breath Sounds. Negative for: Accessory Muscle Use, Respiratory Distress Gastrointestinal/Abdominal: Positive for: Normal Exam, Soft. Negative for: Tenderness Back: Positive for: Normal Inspection Extremity: Positive for: Normal ROM, Other ((+) right leg raise ). Negative for: Tenderness Neurologic/Psych: Positive for: Alert, Oriented - ECG O2 Sat by Pulse Oximetry: 96 Pulse Ox Interpretation: Normal Medical Decision Making Medical Decision Making: Pt reports some improvement with percocet and flexeril. Pt given toradol and able to ambulate to restroom and given urine. Urine normal. Discussed stretches with patient. Disposition - Clinical Impression Clinical Impression: Sciatica - Patient ED Disposition Is Patient to be Admitted: No Counseled Patient/Family Regarding: Diagnosis, Need For Followup, Rx Given - Disposition Disposition: Routine/Home Disposition Time: :18 Condition: GOOD Prescriptions: Cyclobenzaprine [Cyclobenzaprine HCl] 10 mg PO Q8H #20 tab Naproxen [Naprosyn] 500 mg PO BID PRN #20 tablet PRN Reason: Pain oxyCODONE/Acetaminophen [Percocet 5/325 mg Tab] 1 ea PO Q6H PRN #15 tab PRN Reason: Pain, Severe (8-10) Instructions: Sciatica (DC), Sciatica Exercises
== END 2018-01-18 01:29 | disposition home or self-care (01) ==
LOC: H.ER 19:49
DX: M54.30 Sciatica, unspecified side (principal); E11.9 Type 2 diabetes mellitus without complications; I10 Essential (primary) hypertension; Z79.84 Long term (current) use of oral hypoglycemic drugs
CPT/HCPCS: 81003; 87086; 87181; 96372; 99283; J1885

== ENCOUNTER 2018-06-14 14:06 | Emergency (ER) | payer MEDICAID ==
[2018-06-14 14:31] VITALS: PULSE 83
[2018-06-14] MEDS ORDERED: guaiFENesin DM 200 mg-20 mg/10 ml UD PO STA (14:40)
[2018-06-14] MEDS ORDERED: Albuterol-Ipratrop 3 mg / 0.5 (3 ml) UD INH STA ×2 (14:40→19:03)
--- NOTE | 2018-06-14 14:58 | ED PDOC ---
HPI: General Adult Time Seen by Provider: 06/14/18 14:36 Chief Complaint (Nursing): Cough, Cold, Congestion Chief Complaint (Provider): cough, SOB History Per: Patient History/Exam Limitations: no limitations Onset/Duration Of Symptoms: Gradual Current Symptoms Are (Timing): Still Present Severity: Moderate Additional Complaint(s): 62yo female c/o cough and chest tightness ongoing for about 2 weeks. Denies fever, edema, syncope, hemoptysis, weakness or lethargy. States she has had pneumonia in past, not recently. Shes a nonsmoker and never smoked. Using OTC cough medications with minimal relief. Past Medical History Reviewed: Historical Data, Nursing Documentation, Vital Signs Vital Signs: Last Vital Signs Temp 98.3 F 06/14/18 14:29 Pulse 83 06/14/18 14:29 Resp 20 06/14/18 14:29 BP 121/73 06/14/18 14:29 Pulse Ox 97 06/14/18 14:29 - Medical History PMH: Diabetes (oral meds), HTN Denies: Chronic Kidney Disease - Surgical History Surgical History: - Family History Family History: States: Unknown Family Hx - Social History Current smoker - smoking cessation education provided: No - Immunization History Hx Tetanus Toxoid Vaccination: No Hx Influenza Vaccination: No Hx Pneumococcal Vaccination: No - Home Medications Home Medications: Ambulatory Orders Medication Instructions Recorded Benzonatate [Tessalon Perles] 100 mg PO Q8 PRN #30 sgl 01/13/18 Levofloxacin [Levaquin] 500 mg PO DAILY #5 tablet 01/13/18 SITagliptin [Januvia] 100 mg PO DAILY #30 tab 01/13/18 metFORMIN [glucOPHAGE] 850 mg PO BIDWM #60 tab 01/13/18 Cyclobenzaprine [Cyclobenzaprine 10 mg PO Q8H #20 tab 01/18/18 HCl] Naproxen [Naprosyn] 500 mg PO BID PRN #20 tablet 01/18/18 oxyCODONE/Acetaminophen [Percocet 1 ea PO Q6H PRN #15 tab 01/18/18 5/325 mg Tab] Sulfamethoxazole/Trimethoprim 1 each PO BID #20 tablet 01/21/18 [Bactrim 400-80 mg Tablet] Albuterol HFA [Ventolin HFA 90 1 - 2 puff IH Q4 PRN #1 inhaler 04/28/19 mcg/actuation (8 g)] Azithromycin [Zithromax] 250 mg PO DAILY #6 tab 06/14/18 Guaifenesin/Dextromethorphan 10 ml PO Q4 PRN #150 ml 06/14/18 [Guaifenesin Dm Syrup] Prednisone 50 mg PO DAILY #4 tab 06/14/18 - Allergies Allergies/Adverse Reactions: Allergies Allergy/AdvReac Type Severity Reaction Status Date / Time No Known Allergies Allergy Verified 01/17/18 19:55 Review of Systems ROS Statement: Except As Marked, All Systems Reviewed And Found Negative Constitutional: Negative for: Fever Eyes: Negative for: Conjunctivae Inflammation ENT: Negative for: Ear Pain Cardiovascular: Negative for: Chest Pain Respiratory: Positive for: Cough, Shortness of Breath, SOB with Exertion, Wheezing. Negative for: Sputum Gastrointestinal: Negative for: Abdominal Pain Genitourinary Female: Negative for: Dysuria Musculoskeletal: Negative for: Neck Pain Physical Exam - Reviewed Nursing Documentation Reviewed: Yes Vital Signs Reviewed: Yes - Physical Exam Appears: Positive for: Well, Non-toxic, No Acute Distress Head Exam: Positive for: ATRAUMATIC, NORMAL INSPECTION, NORMOCEPHALIC Skin: Positive for: Normal Color, Warm, DRY Eye Exam: Positive for: EOMI, Normal appearance, PERRL ENT: Positive for: Normal ENT Inspection Neck: Positive for: Normal, Painless ROM Cardiovascular/Chest: Positive for: Regular Rate, Rhythm Respiratory: Positive for: Decreased Breath Sounds, Wheezing Gastrointestinal/Abdominal: Positive for: Normal Exam, Soft Back: Positive for: Normal Inspection Extremity: Positive for: Normal ROM Neurological/Psych: Positive for: Awake, Alert, Normal Tone - ECG O2 Sat by Pulse Oximetry: 97 Medical Decision Making Medical Decision Making: Time: 1440 Plan: -- EKG -- CXR Two Views -- Duoneb 3mg/0.5mg (3ml) UD 3ml INH -- Robitussin DM 10 ml PO -- Peak Flow Pre/Post Tx Time: 1607 Plan: -- SOLU-Medrol 125 mg IVP improved over ED course, SPO2 remained normal and unlabored respiratory effort stable for outpatient treatment at the time of evaluation Scribe Attestation: Documented by Parish Oliva, acting as a scribe Gopal Torres III, DO Provider Scribe Attestation: All medical record entries made by the Scribe were at my direction and personally dictated by me. I have reviewed the chart and agree that the record accurately reflects my personal performance of the medical decision making for this patient. I have also personally directed, reviewed, and agree with the discharge instructions and disposition. Disposition - Clinical Impression Clinical Impression: Bronchitis - Patient ED Disposition Is Patient to be Admitted: No Counseled Patient/Family Regarding: Studies Performed, Diagnosis, Need For Followup, Rx Given - Disposition Referrals: [facility] [Outside] Disposition: Routine/Home Disposition Time: 18:45 Condition: STABLE Additional Instructions: Take medications as directed. Return to ER for any worse or new symptoms. Prescriptions: Albuterol HFA [Ventolin HFA 90 mcg/actuation (8 g)] 1 - 2 puff IH Q4 PRN #1 inhaler PRN Reason: Shortness Of Breath Azithromycin [Zithromax] 250 mg PO DAILY #6 tab Guaifenesin/Dextromethorphan [Guaifenesin Dm Syrup] 10 ml PO Q4 PRN #150 ml PRN Reason: Cough Prednisone 50 mg PO DAILY #4 tab Instructions: Acute Bronchitis Forms: [facility] (E[place]ian)
[2018-06-14] MEDS ORDERED: guaiFENesin 100 mg/5 ml Syrup UD ONE (15:04)
[2018-06-14] MEDS ORDERED: Albuterol-Ipratrop 3 mg / 0.5 (3 ml) UD ONE ×2 (15:04→18:53)
--- NOTE | 2018-06-14 15:58 | RAD ---
Date of service: 06/14/2018 HISTORY: Chest pain; rule out infiltrate. COMPARISON: Comparison chest dated 01/12/2018. TECHNIQUE: Chest PA and lateral views FINDINGS: LUNGS: Poor inspiration with low lung volumes common crowded bronchovascular markings and bibasilar atelectasis.. PLEURA: No significant pleural effusion identified. No pneumothorax apparent. CARDIOVASCULAR: No aortic atherosclerotic calcification present. Heart appears mildly enlarged. No pulmonary vascular congestion. OSSEOUS STRUCTURES: Mild multilevel degenerative spondylosis of the thoracic spine. VISUALIZED UPPER ABDOMEN: Normal. OTHER FINDINGS: None. IMPRESSION: Poor inspiration with low lung volumes common crowded bronchovascular markings and bibasilar atelectasis..
[2018-06-14 19:15] VITALS: BP 114/65; RESP 18; TEMP 98.7
--- NOTE | 2018-06-15 10:25 | CARD ---
APPROVED REPORT Date of service: 06/14/2018 EKG Measurement Heart [id number] <Conclusion> Normal sinus rhythm Possible Left atrial enlargement Septal infarct, age undetermined Abnormal ECG
[2018-06-16 15:31] VITALS: O2SAT 97
== END 2018-06-14 19:13 | disposition home or self-care (01) ==
LOC: H.ER 14:06
DX: J40 Bronchitis, not specified as acute or chronic (principal); E11.9 Type 2 diabetes mellitus without complications; I10 Essential (primary) hypertension; Z79.84 Long term (current) use of oral hypoglycemic drugs
CPT/HCPCS: 71046; 93005; 94640; 96372; 99283; J2930